=== PATIENT | female | born 1985 | race Two or more races ===

== ENCOUNTER 2020-07-04 14:32 | Emergency (ER) | payer OTHER ==
[~2020-07-04] VITALS: Ht 172.7 cm; Wt 90.7 kg
--- NOTE | 2020-07-04 14:47 | NUR ---
at bedside for assessment
[2020-07-04] MEDS ORDERED: METOCLOPRAMIDE HCL 10 MG/2 ML VIAL ONE (15:01)
[2020-07-04] MEDS ORDERED: ACETAMINOPHEN 325 MG TABLET ONE (15:01)
[2020-07-04 15:30] LABS: *BILIRUBIN,URIN NEGATIVE (NEGATIVE); *BLOOD, URINE NEGATIVE (NEGATIVE); *CLARITY,URINE CLOUDY (CLEAR); *COLOR,URINE YELLOW (YELLOW); *KETONES,URINE NEGATIVE (NEGATIVE); *UROBILINOGEN,URINE 0.2 E.U./dl (NORMAL); LEUKOCYTE ESTERASE ,URINE 3+ (NEGATIVE); NITRITE, URINE NEGATIVE (NEGATIVE); PH,URINE 6.5 (5.0-8.0); UGLUCOSE NEGATIVE (NEGATIVE)
[2020-07-04 15:31] LABS: BASOPHILS % (AUTO) 0.9 % (0.0-2.0); EOSINOPHILS % (AUTO) 0.4 % (0.0-7.0); HEMATOCRIT 36.2 % (31.2-41.9); HEMOGLOBIN 12.1 g/dL (10.9-14.3); LYMPHOCYTES # (AUTO) 1.5 K/uL (20.0-40.0); LYMPHOCYTES % (AUTO) 27.1 % (20.5-51.5); MEAN CORPUSCULAR HEMOGLOBIN 28.6 uug (24.7-32.8); MEAN CORPUSCULAR HGB CONC 33 g/dL (32.3-35.6); MEAN CORPUSCULAR VOLUME 85.7 fL (75.5-95.3); MONOCYTES # (AUTO) 0.3 K/uL (2.0-10.0); MONOCYTES % (AUTO) 4.8 % (0.0-11.0); NEUTROPHILS # (AUTO) 3.8 K/uL (1.8-8.9); NEUTROPHILS % (AUTO) 66.8 % (38.5-71.5); PLATELET COUNT (AUTO) 168 K/uL (179-408); RED BLOOD CELL COUNT(AUTO) 4.23 MIL/uL (3.63-4.92); WHITE BLOOD COUNT (AUTO) 5.7 K/uL (3.8-11.8)
[2020-07-04 15:32] LABS: CREATININE 0.7 mg/dL (0.6-1.3); POTASSIUM 3.7 mmol/L (3.5-5.1)
--- NOTE | 2020-07-04 15:40 | NUR ---
Ultrasound at bedside for assessment
[2020-07-04 15:44] LABS: BILIRUBIN,DIRECT 0.1 mg/dL (0.0-0.2); BILIRUBIN,TOTAL 0.1 mg/dL (0.2-1.0); TOTAL PROTEIN, SERUM 6.6 g/dL (6.4-8.2)
[2020-07-04 15:48] LABS: *AMPHETAMINE, URINE POSITIVE (NEGATIVE); *CANNABINOID, URINE POSITIVE (NEGATIVE); *COCCAINE, URINE NEGATIVE (NEGATIVE); *OPIATE, URINE NEGATIVE (NEGATIVE); *PHENCYCLIDINE SCREEN,URINE NEGATIVE (NEGATIVE)
[2020-07-04] MEDS: METOCLOPRAMIDE HCL 10 MG/2 ML VIAL IV ONE (15:51)
[2020-07-04] MEDS: IV NORMAL SALINE 500 ML BAG IV ONE (15:51)
[2020-07-04] MEDS: ACETAMINOPHEN 325 MG TABLET PO ONE (15:51)
[2020-07-04 15:53] LABS: BACTERIA,URINE MODERATE /HPF (NONE SEEN); SQUAMOUS EPITHELIAL CELL,UR MANY /HPF (NONE SEEN); WBC,URINE 20-50 /HPF (0-3)
[2020-07-04 16:02] LABS: THYROID STIMULATING HORMONE 2.504 mIU/mL (0.358-3.740)
[2020-07-04] MEDS ORDERED: SWABABLE VALVE TRANSFER SET EA MC ONE (16:05)
[2020-07-04] MEDS ORDERED: IOHEXOL 350 100 ML INFUS..BTL ONE (16:05)
[2020-07-04] MEDS ORDERED: IV NORMAL SALINE 250 ML IV ONE (16:05)
--- NOTE | 2020-07-04 17:51 | NUR ---
MD Rosanna DAVIS paged at this time for consult
[2020-07-04] MEDS: CEphaleXIN 500 MG CAPSULE PO ONE (18:07)
[2020-07-04] MEDS ORDERED: CEphaleXIN 500 MG CAPSULE ONE (18:12)
--- NOTE | 2020-07-04 18:17 | NUR ---
Called [facility] for HLOC transfer per request. Spoke with Jes on L+D floor and provided her with requested information, she stated she will speak to their physician and call back.
--- NOTE | 2020-07-04 18:25 | NUR ---
spoke with [facility] L+D physician via telephone.
[2020-07-04 18:37] VITALS: BP 158/90
[2020-07-04] MEDS: LABETALOL HCL 100 MG TABLET PO ONE (18:37)
[2020-07-04] MEDS ORDERED: LABETALOL HCL 100 MG TABLET ONE (18:41)
--- NOTE | 2020-07-04 20:07 | NUR ---
Spoke with Jose Roberto Thakkar RN at [facility] L&D department and gave report. Previous admitting Dr. was Dr. James. Dr. Villalpando to assume care when patient arrives at [facility]
--- NOTE | 2020-07-04 20:10 | NUR ---
Called [facility] for transportation with an ETA of 1.5 hrs
--- NOTE | 2020-07-04 20:27 | NUR ---
Spoke with ER admitting to inform of patient arriving. Per admitting, patient to go straight to L&D department
--- NOTE | 2020-07-04 22:00 | NUR ---
Patient Tranfers to outside Facility Physician: Dr. Skelton / Dr. Villalpando Location: [facility]
--- NOTE | 2020-07-04 22:00 | NUR ---
Patient taken to [facility] via [facility] [id number] in stable condition. All belongings with patient. NAD noted
== END 2020-07-04 22:00 | disposition short-term general hospital (02) ==
LOC: ER 14:38
DX: O16.3 Unspecified maternal hypertension, third trimester (principal); O23.43 Unspecified infection of urinary tract in pregnancy, third trimester; Z3A.33 33 weeks gestation of pregnancy; O99.333 Smoking (tobacco) complicating pregnancy, third trimester; F17.210 Nicotine dependence, cigarettes, uncomplicated; O99.283 Endocrine, nutritional and metabolic diseases complicating pregnancy, third trimester; E04.1 Nontoxic single thyroid nodule; O99.323 Drug use complicating pregnancy, third trimester; F15.10 Other stimulant abuse, uncomplicated; O28.0 Abnormal hematological finding on antenatal screening of mother; R79.1 Abnormal coagulation profile; R51.9 Headache, unspecified
CPT/HCPCS: 36415; 71045; 71275; 76536; 76819; 80048; 80076; 80307; 81001; 83880; 84443; 84484 ×2; 84702; 85025; 85379; 87086; 93005 ×2; 93970; 96361; 96374; 99285; J2765; Q9967; 70030-TC; A4663; J7030; J7050